=== PATIENT | female | born 1960 ===

== ENCOUNTER 2016-11-14 20:06 | Emergency (ER) | payer SELFPAY ==
[2016-11-14 20:32] VITALS: RESP 16
[2016-11-14] MEDS ORDERED: Sodium Chloride 0.9% 1,000 ML IV ONE (20:39)
--- NOTE | 2016-11-14 20:41 | C.PDOC ---
History Of Present Illness 56 y/o female presents to the ED c/o abdominal pain since last night with one episode of vomiting. pt staets pain worse to epigastric region. The patient denies diarrhea, and any further complaints. Time Seen by Provider: 11/14/16 20:32 Chief Complaint (Nursing): Abdominal Pain History Per: Patient History/Exam Limitations: no limitations Onset/Duration Of Symptoms: Days Current Symptoms Are (Timing): Still Present Past Medical History Reviewed: Historical Data, Nursing Documentation, Vital Signs Vital Signs: Last Vital Signs Temp 98.3 F 11/14/16 20:21 Pulse 59 L 11/14/16 20:21 Resp 16 11/14/16 20:21 BP 135/75 11/14/16 20:21 Pulse Ox 100 11/14/16 22:13 Surgical History: No Surg Hx Family History: States: Unknown Family Hx - Social History Hx Alcohol Use: No Hx Substance Use: No - Immunization History Hx Tetanus Toxoid Vaccination: No Hx Influenza Vaccination: No Hx Pneumococcal Vaccination: No Review Of Systems Except As Marked, All Systems Reviewed And Found Negative. Constitutional: Negative for: Fever, Chills Cardiovascular: Negative for: Chest Pain Respiratory: Negative for: Shortness of Breath Gastrointestinal: Positive for: Vomiting, Abdominal Pain, Other (pain in the upper epigastric region ). Negative for: Nausea, Diarrhea Physical Exam - Physical Exam Appears: Non-toxic, No Acute Distress Skin: Warm, Dry Head: Atraumatic, Normacephalic Oral Mucosa: Moist Neck: Supple Chest: Symmetrical Cardiovascular: Rhythm Regular Respiratory: Normal Breath Sounds, No Rales, No Rhonchi Gastrointestinal/Abdominal: Soft, Tenderness (mild epigrastric ), No Guarding, No Rebound Extremity: Normal ROM, Capillary Refill (<2sec.) Neurological/Psych: Oriented x3, Normal Speech, Normal Cognition Gait: Steady ED Course And Treatment - Laboratory Results Result Diagrams: 11/14/16 21:04 11/14/16 21:04 O2 Sat by Pulse Oximetry: 100 (RA) Progress Note: The patient received blood work, IV fluids, and UA . The patient was administered Protonix, and Zofran. Medical Decision Making Medical Decision Making: consider gastritis, pancreatiis, pud. bedside US does not show gallbladder pathology- labs pending 1000: pt reassesseD: pain improved. no rlq ttp. urine treated. advise outpt f/u and return precautions 1200: pt reassese: sp antibioitcs on phoe in nad. no abdominal ttp. pt asking for dc Disposition - Disposition Referrals: Dov Payne MD [Staff Provider] - [facility] [Outside] [facility] [Outside] [facility] [Outside] [facility] [Outside] Disposition: HOME/ ROUTINE Disposition Time: 22:01 Condition: STABLE Additional Instructions: please follow upw ith your doctor/specialist. return to er with worsening symptoms or concerns. Prescriptions: Ciprofloxacin [Cipro] 500 mg PO BID #14 tab Instructions: Urinary Tract Infection in Women (ED), Acute Abdominal Pain (ED) Forms: [facility] (Malay) - Clinical Impression Clinical Impression: Abdominal pain, UTI (urinary tract infection) - Scribe Statement The provider has reviewed the documentation as recorded by the Scribe Irena Alanis All medical record entries made by the Scribe were at my direction and personally dictated by me. I have reviewed the chart and agree that the record accurately reflects my personal performance of the history, physical exam, medical decision making, and the department course for this patient. I have also personally directed, reviewed, and agree with the discharge instructions and disposition.
[2016-11-14] MEDS ORDERED: Sodium Chloride 0.9% 1,000 ML ONE (21:04)
[2016-11-14 21:15] LABS: BASO % 0.3 % (0.0-2.0); EOS # 0.1 K/uL (0.0-0.7); EOS % 2.2 % (0.0-4.0); HEMATOCRIT 39.9 % (34.0-47.0); LYMPH # 2.9 K/uL (1.0-4.3); LYMPH % 46.7 % (20.0-40.0); MEAN CELL VOLUME 93.3 fL (81.0-99.0); MEAN CORPUSCULAR HEMOGLOBIN 30.9 pg (27.0-31.0); MEAN CORPUSCULAR HGB CONC 33.2 g/dL (33.0-37.0); MEAN PLATELET VOLUME 9.3 fL (7.2-11.7); MONO # 0.8 K/uL (0.0-0.8); MONO % 12.9 % (0.0-10.0); RED CELL DISTRIBUTION WIDTH 13.1 % (11.5-14.5); WHITE BLOOD COUNT 6.3 K/uL (4.8-10.8)
[2016-11-14 21:22] LABS: RBC URINE 1 /hpf (0-3); URINE BACTERIA FEW (<OCC); URINE BILIRUBIN NEGATIVE (NEGATIVE); URINE BLOOD NEGATIVE (NEGATIVE); URINE COLOR Straw (YELLOW); URINE GLUCOSE (UA) NORMAL (Normal); URINE KETONE NEGATIVE (NEGATIVE); URINE LEUKOCYTE ESTERASE 3+ Leu/uL (Negative); URINE PROTEIN NEGATIVE (NEGATIVE); URINE UROBILINOGEN NORMAL mg/dL (0.2-1.0); WBC URINE 33 /hpf (0-5)
[2016-11-14] MEDS ORDERED: Ciprofloxacin 400mg/200ml D5W 400 MG/200 ML BAG IVPB STA (21:24)
[2016-11-14 21:26] LABS: ALB/GLOB RATIO 1.5 (1.0-2.1); ALKALINE PHOSPHATASE 79 U/L (38-126); ALT/SGPT 35 U/L (9-52); AST/SGOT 20 U/L (14-36); BILIRUBIN,TOTAL 0.4 mg/dL (0.2-1.3); BLOOD UREA NITROGEN 15 mg/dL (7-17); CALCIUM 8.5 mg/dl (8.6-10.4); CARBON DIOXIDE 26 mmol/L (22-30); CHLORIDE 99 mmol/L (98-107); GFR AFRICAN-AMERICAN > 60; GLUCOSE,RANDOM 84 mg/dL (65-105); POTASSIUM 3.7 mmol/L (3.6-5.2); SODIUM 139 mmol/L (132-148); TOTAL PROTEIN 6.6 g/dL (6.3-8.3)
[2016-11-14] MEDS ORDERED: Ciprofloxacin 400mg/200ml D5W 400 MG/200 ML BAG IVPB ONE (21:32)
[2016-11-15 00:05] VITALS: BP 124/68; PULSE 70; TEMP 97.6; O2SAT 98
== END 2016-11-15 00:05 | disposition home or self-care (01) ==
LOC: C.ER 20:06
DX: N39.0 Urinary tract infection, site not specified (principal); R10.13 Epigastric pain
CPT/HCPCS: 80053; 81001; 83690; 84703; 85025; 85610; 85730; 87086; 96365; 96375; 99283; C9113; J0744; J2405; J7040

== ENCOUNTER 2017-03-17 20:55 | Emergency (ER) | payer SELFPAY ==
[2017-03-17 21:40] VITALS: BP 147/92; PULSE 54; TEMP 97.5; O2SAT 100
--- NOTE | 2017-03-17 21:55 | C.PDOC ---
History Of Present Illness Patient complains of throat discomfort for 2 months and associated itching of the nose and chest. Patient states 2 months ago she ate celery, which she think was infected because she then developed pain and vomiting. She states she was seen at hospital and treated with antibiotic for infection. Patient states whenever she eats she feels some discomfort in her throat and then later feels it coming back up. She describes "feels like a worm crawling up and down her throat". She states she thinks she has a parasite and that is why she also feels itchy. Denies any abdominal pain, vomiting, diarrhea, urinary symptoms, rash, weight loss. Time Seen by Provider: 03/17/17 21:42 Chief Complaint (Nursing): ENT Problem History Per: Patient History/Exam Limitations: no limitations Onset/Duration Of Symptoms: Other (2 months) Past Medical History Reviewed: Historical Data, Nursing Documentation, Vital Signs Vital Signs: Last Vital Signs Temp 97.5 F L 03/17/17 21:36 Pulse 54 L 03/17/17 21:36 Resp 18 03/17/17 21:36 BP 147/92 H 03/17/17 21:36 Pulse Ox 100 03/17/17 21:55 - Medical History PMH: No Chronic Diseases Surgical History: No Surg Hx Family History: States: Unknown Family Hx - Social History Hx Alcohol Use: No Hx Substance Use: No - Immunization History Hx Tetanus Toxoid Vaccination: No Hx Influenza Vaccination: No Hx Pneumococcal Vaccination: No Review Of Systems Constitutional: Negative for: Fever ENT: Positive for: Throat Pain Cardiovascular: Negative for: Chest Pain, Palpitations Respiratory: Negative for: Cough, Shortness of Breath Gastrointestinal: Negative for: Vomiting, Abdominal Pain, Diarrhea Genitourinary: Negative for: Dysuria Musculoskeletal: Negative for: Neck Pain, Back Pain Skin: Negative for: Rash Neurological: Negative for: Weakness, Numbness, Headache, Dizziness Physical Exam - Physical Exam Appears: Non-toxic, No Acute Distress Skin: Warm, Dry, No Rash Head: Atraumatic, Normacephalic Eye(s): bilateral: Normal Inspection, EOMI Ear(s): Bilateral: Normal (no erythema) Nose: Normal Oral Mucosa: Moist Throat: Normal, No Erythema, No Exudate, No Drooling, No Mass Neck: Normal ROM Chest: Symmetrical Cardiovascular: Rhythm Regular, No Murmur Respiratory: Normal Breath Sounds, No Rales, No Rhonchi, No Wheezing Gastrointestinal/Abdominal: Bowel Sounds, Soft, No Tenderness, No Distention, No Guarding Extremity: Bilateral: Atraumatic, Normal Color And Temperature, Normal ROM Neurological/Psych: Oriented x3, Normal Speech Gait: Steady ED Course And Treatment O2 Sat by Pulse Oximetry: 100 Medical Decision Making Medical Decision Making: Patient with complaints of throat discomfort, but points to neck and likely esophagus. She thinks she has parasite. she has no weight loss or concerning symptoms. Exam unremarkable. I recommend patient follow up with the clinic and GI for further evaluation. will prescribe omeprazole to help with symptoms. Disposition Counseled Patient/Family Regarding: Diagnosis, Need For Followup, Rx Given - Disposition Referrals: Simran Burnett MD [Staff Provider] - Disposition: HOME/ ROUTINE Disposition Time: 21:53 Condition: GOOD Additional Instructions: Por favor juancarlos un seguimiento con underwood mdico o clnica para recibir ms lucasin Nathaniel medicamentos diariamente Prescriptions: Omeprazole 20 mg PO DAILY #30 tablet. Instructions: Gastroesophageal Reflux Disease (ED) Forms: [employer] (Wolof) Print Language: ESTONIAN - POA Present On Arrival: None - Clinical Impression Clinical Impression: Acid reflux
[2017-03-17 22:19] VITALS: RESP 20
== END 2017-03-17 22:18 | disposition home or self-care (01) ==
LOC: C.ER 20:55
DX: K21.9 Gastro-esophageal reflux disease without esophagitis (principal)